=== PATIENT | female | born 1965 | race Caucasian/White ===

== ENCOUNTER → 2016-09-25 | Outpatient (CLI) | payer OTHER ==
[~2016-09-25] MED LIST: CRAN500T2 PO; INSU100V8 SQ; LACT1CAP40 PO; LIDOCAINE 1%-EPI 1:100K, 20ML ONE; LISI5TAB7 PO; MELA1TAB19 SL; OMEP-110 PO; SIMV40TA3 PO; SODIUM BICARBONATE 4.2%, 5ML ONE
== END | disposition home or self-care (01) ==
LOC: CFH 07:27
PROVIDERS: ATTEND Family Medicine
DX: N63 Unspecified lump in breast (principal)
CPT/HCPCS: 19083; 88305; J3490